=== PATIENT | female | born 1950 | race Caucasian/White ===

== ENCOUNTER → 2021-05-10 | Outpatient (CLI) | payer MEDICARE, OTHER ==
[~2021-05-10] MED LIST: EFFEXOR XR150 MG PO; MOBIC7.5 MG PO; PANTOPRAZOLE SO40 MG PO; PROVENTIL HFA 61 INH INH; PULMICORT FLE180 MCG INH; RESTORIL 30 MG30 MG PO; SYNTHROID 88 M88 MCG PO; VITAMIN B-1000 MCG/M IM; VITAMIN D250000 UNIT PO; ZESTRIL5 MG PO
== END ==
LOC: KOH-I 11:00
DX: J32.9 Chronic sinusitis, unspecified (principal)
CPT/HCPCS: 70486

== ENCOUNTER 2021-11-25 17:54 | Emergency (ER) | payer MEDICARE, OTHER ==
[2021-11-25] MEDS ORDERED: HYDROCODON-ACE1 EAC4 PO (19:27)
[2021-11-25] MEDS ORDERED: NORFLEX 100 MG100 MG PO (19:53)
[2021-11-25] MEDS ORDERED: Voltaren Gel 1 % TOP (19:53)
== END 2021-11-25 20:00 | disposition home or self-care (01) ==
LOC: ER1 17:54
DX: S20.211A Contusion of right front wall of thorax, initial encounter (principal); Z88.2 Allergy status to sulfonamides; W01.0XXA Fall on same level from slipping, tripping and stumbling without subsequent striking against object, initial encounter
CPT/HCPCS: 71111; 99283

== ENCOUNTER 2022-04-23 11:38 | Emergency (ER) | payer MEDICARE, OTHER ==
[~2022-04-23] VITALS: Ht 165.1 cm; Wt 90.7 kg
[~2022-04-23 11:38] MED LIST changes: +HYDROCODON-ACE1 EAC4 PO; +NORFLEX 100 MG100 MG PO; +Voltaren Gel 1 % TOP
[2022-04-23 12:41] LABS: HEMOGLOBIN 13.4 gm/dl (12.3-15.3); RED BLOOD COUNT 4.13 M/UL (4.00-5.10); WHITE BLOOD COUNT 5.7 K/UL (4.5-11.0)
[2022-04-23 13:00] LABS: BUN/CREATININE RATIO 29 (0-10)
[2022-04-23] MEDS ORDERED: ZOFRAN 4 MG TAB4 MG PO (15:14)
[2022-04-23] MEDS ORDERED: PROVENTIL HFA6.7 GM INH (15:14)
[2022-04-23] MEDS ORDERED: DELSYM30 MG/5 ML PO (15:14)
== END 2022-04-23 15:55 | disposition home or self-care (01) ==
LOC: ER1 11:38
PROVIDERS: Physician Assistant Medical
DX: U07.1 COVID-19 (principal); J45.909 Unspecified asthma, uncomplicated; R00.0 Tachycardia, unspecified; Z85.038 Personal history of other malignant neoplasm of large intestine; Z85.3 Personal history of malignant neoplasm of breast; Z90.49 Acquired absence of other specified parts of digestive tract; Z90.89 Acquired absence of other organs
CPT/HCPCS: 0240U; 71045; 80053; 82550; 82553; 84484; 85025; 87040; 93005; 96361; 96374; 99284; J2405; M0222